=== PATIENT | male | born 1990 | race Caucasian/White ===

== ENCOUNTER 2016-09-12 15:46 | Emergency (ER) | payer OTHER ==
[2016-09-12 16:26] VITALS: BP 117/58; PULSE 75; TEMP 98.2; BMI 23.3
--- NOTE | 2016-09-12 17:18 | PDOC ---
History of Present Illness - General Chief Complaint: Chest Pain Stated Complaint: CHEST PAIN, SOB Time Seen by Provider: 09/12/16 17:06 History Source: Patient Exam Limitations: No Limitations - History of Present Illness Initial Comments: 09/12/16 17:33 My Chief Complaint: Dry cough, with shortness of breath and left chest pain and with breathing History of present illness: Patient is a 26-year-old male with no significant medical history here today complaining of a dry cough since with shortness of breath intermittent even at rest with left chest wall pain when deep breathing. Patient also reports having nasal congestion with clear rhinorrhea. Patient had nausea with vomiting since until yesterday. Patient went back to work today however is not feeling well. Today is the first day that he can drink as usual however still has a decreased appetite. Patient denies any fever. Patient did not have influenza vaccine. Denies any recent travel or any known sick contacts. Timing/Duration: getting worse Severity: moderate Associated Symptoms: reports: chest pain (left sided chest wall pain with cough , palpation or deep breathing ), cough, loss of appetite, nausea/vomiting (on until yesterday ), other (nasal congestion) Past History - Past Medical History Allergies/Adverse Reactions: Allergies Allergy/AdvReac Type Severity Reaction Status Date / Time No Known Allergies Allergy Verified 09/12/16 16:21 Home Medications: Ambulatory Orders Guaifenesin Dm [Mucinex Dm -] 1 tab PO Q12H PRN #10 tab.er.12h MDD 2 09/12/16 Ibuprofen [Motrin -] 400 mg PO Q4H PRN #18 tablet 09/12/16 - Psycho/Social/Smoking Cessation Hx Suicidal Ideation: No Smoking History: Never smoked Have you smoked in the past 12 months: No Information on smoking cessation initiated: No Hx Alcohol Use: Yes Drug/Substance Use Hx: No Substance Use Type: Marijuana Review of Systems - Review of Systems Able to Perform ROS?: Yes Constitutional: Yes: Loss of Appetite HEENTM: Yes: Nose Congestion Respiratory: Yes: Cough Cardiac (ROS): Yes: Chest Pain (left sided with deep breathing, cough, movement and palpation of chest wall). No: Irregular Heart Rate, Lightheadedness, Palpitations, Syncope, Chest Tightness ABD/GI: Yes: Vomiting (from 09/03/16 until yesterday) Musculoskeletal: No: Symptoms Reported Integumentary: No: Symptoms Reported Neurological: No: Symptoms reported *Physical Exam - Vital Signs Last Vital Signs Temp Pulse Resp BP Pulse Ox 98.2 F 75 18 117/58 100 09/12/16 16:21 09/12/16 16:21 09/12/16 16:21 09/12/16 16:21 09/12/16 16:21 - Physical Exam General Appearance: Yes: Appropriately Dressed HEENT: positive: Normal ENT Inspection Neck: negative: Lymphadenopathy (R), Lymphadenopathy (L) Respiratory/Chest: positive: Chest Tender (along left sternal border), Lungs Clear, Normal Breath Sounds. negative: Respiratory Distress, Accessory Muscle Use, Labored Respiration, Rapid RR, Decreased Breath Sounds, Paradoxal Breathing , Crackles, Rales, Rhonchi, Stridor, Wheezing Cardiovascular: positive: Regular Rhythm, Regular Rate, S1, S2 Extremity: positive: Normal Capillary Refill Integumentary: positive: Normal Color Neurologic: positive: Fully Oriented, Alert, Normal Response, Responsive Heart Score/ECG Review - ECG Impressions Comment:: 09/12/16 19:[address] Melgar Medical Decision Making - Medical Decision Making 09/12/16 17:35 Patient is a 26-year-old male with no significant medical history here today complaining of a dry cough since with shortness of breath intermittent even at rest with left chest wall pain when deep breathing. Patient also reports having nasal congestion with clear rhinorrhea. Patient had nausea with vomiting since [place] until yesterday. Patient went back to work today however is not feeling well. Today is the first day that he can drink as usual however still has a decreased appetite. Patient denies any fever. Patient did not have influenza vaccine. Denies any recent travel or any known sick contacts. He reports having intermittent fever. Rule out infiltrate cough with chest wall discomfort with deep breathing and shortness of breath costochondritis left sided Plan: DuoNeb X-ray chest PA and lateral no infiltrate noted EKG reviewed by Dr. Melgar wnl's acetaminophen 1000 mg po now Mucinex DM 1 tab q12hr prn cough X 5 days 09/12/16 19:04 09/12/16 19:07 09/12/16 19:33 Ibuprofen 400 mg every 6 hrs prn pain *DC/Admit/Observation/Transfer Diagnosis at time of Disposition: Costochondral chest pain, Cough - Discharge Dispostion Disposition: HOME Condition at time of disposition: Stable - Prescriptions Prescriptions: Ibuprofen [Motrin -] 400 mg PO Q4H PRN #18 tablet PRN Reason: Pain Guaifenesin Dm [Mucinex Dm -] 1 tab PO Q12H PRN #10 tab.er.12h MDD 2 PRN Reason: Cough - Referrals Referrals: Jessica Tucker MD [Primary Care Provider] - - Patient Instructions Additional Instructions: Rest and drink a lot of fluids and foods as tolerated Follow-up with your primary care provider within the next few days Return to emergency room if symptoms worsen or new symptoms develop Patient voiced understanding of discharge instructions and all questions were answered - Post Discharge Activity Work/School Note: Back to Work
[2016-09-12] MEDS ORDERED: ALBUTEROL SO4 2.5/IPRATROPIUM 0.5 INH SOL 3 ML VIAL.NEB. NEB ONE ×2 (17:32→17:34)
[2016-09-12] MEDS ORDERED: ACETAMINOPHEN 500 MG TABLET (FP) PO ONE (18:57)
[2016-09-12] MEDS ORDERED: ACETAMINOPHEN 500 MG TABLET (FP) ONE ×2 (18:58→18:59)
--- NOTE | 2016-09-14 15:17 | EKG ---
Test Reason : Blood Pressure : / mmHG Vent. Rate : 075 BPM Atrial Rate : 075 BPM P-R Int : 158 ms QRS Dur : 076 ms QT Int : 374 ms P-R-T Axes : 061 033 027 degrees QTc Int : 417 ms NORMAL SINUS RHYTHM NORMAL ECG NO PREVIOUS ECGS AVAILABLE Confirmed by MONIK ELIAS MD ([id number]) on 09/14/2016 3:17:14 PM Referred By: Confirmed By:MONIK ELIAS MD
== END 2016-09-12 20:24 | disposition home or self-care (01) ==
LOC: JERFT 15:46
PROC: 3E0F7GC Introduction of Other Therapeutic Substance into Respiratory Tract, Via Natural or Artificial Opening (ICD-10-PCS; principal; 2016-09-12)
DX: M94.0 Chondrocostal junction syndrome [Tietze] (principal); R05 Cough
CPT/HCPCS: 71020-TC; 93005; 93010; 99281-25

== ENCOUNTER 2019-09-30 17:09 | Emergency (ER) | payer OTHER ==
[2019-09-30 17:20] VITALS: BMI 25.0
--- NOTE | 2019-09-30 17:21 | PDOC ---
Rapid Medical Evaluation Time Seen by Provider: 09/30/19 17:17 Medical Evaluation: Allergies Allergy/AdvReac Type Severity Reaction Status Date / Time No Known Allergies Allergy Verified 09/12/16 16:21 09/30/19 17:19 This patient had brief evaluation by me cc: nausea and vomiting HPI: Patient reports nausea and vomiting since this am States intermittent abdominal pain. Complaining of cramping in his hands PE: NAD even and unlabored generalized abdominal tenderness orders: iv fluids, saline loc , labs This patient will proceed to the emergency room for further evaluation,. Discharge Disposition - Diagnosis Nausea and vomiting - Referrals - Patient Instructions - Post Discharge Activity
[2019-09-30] MEDS ORDERED: ONDANSETRON *ODT* 4 MG TABLET SL ONE (17:22)
[2019-09-30] MEDS ORDERED: SODIUM CHLORIDE 1,000 ML IV SCH (17:30)
[2019-09-30] MEDS ORDERED: ONDANSETRON *ODT* 4 MG TABLET ONE (17:47)
[2019-09-30 17:52] LABS: BASO % 0.8 % (0-2.0); EOS % 0.3 % (0-4.5); HEMATOCRIT 45.8 % (35.4-49); HEMOGLOBIN 15.6 GM/dL (11.7-16.9); LYMPH % 14.7 % (8-40); MCH 28.9 pg (25.7-33.7); MEAN CELL VOLUME 85.1 fl (80-96); MEAN PLT VOLUME 7.5 fl (7.5-11.1); MONO % 16.1 % (3.8-10.2); NEUT % 68.1 % (42.8-82.8); PLATELET COUNT 267 K/MM3 (134-434); RBC 5.38 M/mm3 (4.00-5.60); RDW 12.9 % (11.9-15.9); WHITE BLOOD COUNT 7.6 K/mm3 (4.0-10.0)
[2019-09-30 18:25] LABS: ALBUMIN 4.9 g/dl (3.4-5.0); BILIRUBIN,TOTAL 0.5 mg/dL (0.2-1); BLOOD UREA NITROGEN 10.6 mg/dL (7-18); CALCIUM 10.3 mg/dL (8.5-10.1); CREATININE 1.3 mg/dL (0.55-1.3); POTASSIUM 3.8 mmol/L (3.5-5.1); TOT PROT 8.5 g/dl (6.4-8.2)
[2019-09-30] MEDS ORDERED: ACETAMINOPHEN 1000 MG/100 ML VIAL (NON FORMULARY) IVPB ONE (19:43)
[2019-09-30] MEDS ORDERED: SODIUM CHLORIDE 1,000 ML IV STA (19:43)
--- NOTE | 2019-09-30 19:43 | PDOC ---
History of Present Illness - General Chief Complaint: Nausea/Vomiting Stated Complaint: NAUSEA/ BODYACHES Time Seen by Provider: 09/30/19 17:17 History Source: Patient - History of Present Illness Initial Comments: 09/30/19 21:25 29 year old male c/o Nausea and vomiting and abdominal pain. patient reports drinking milk with cake. denies abdominal pain now. PMHX: none Past History - Past Medical History Allergies/Adverse Reactions: Allergies Allergy/AdvReac Type Severity Reaction Status Date / Time No Known Allergies Allergy Verified 09/30/19 17:19 Home Medications: Ambulatory Orders Guaifenesin Dm [Mucinex Dm -] 1 tab PO Q12H PRN #10 tab.er.12h MDD 2 09/12/16 Ibuprofen [Motrin -] 400 mg PO Q4H PRN #18 tablet 09/12/16 COPD: No - Psycho Social/Smoking Cessation Hx Smoking History: Never smoked Have you smoked in the past 12 months: No Hx Alcohol Use: Yes Drug/Substance Use Hx: No Substance Use Type: Marijuana Review of Systems - Review of Systems Able to Perform ROS?: Yes Is the patient limited Tuvaluan proficient: No Constitutional: No: Symptoms Reported, See HPI, Chills, Diaphoresis, Fever, Loss of Appetite, Malaise, Night Sweats, Weakness, Weight Stable, Unintentional Wgt. Loss, Unexplained wgt Loss, Other ABD/GI: Yes: Nausea, Vomiting, Abdominal cramping *Physical Exam - Vital Signs Last Vital Signs Temp Pulse Resp BP Pulse Ox 101 F H 114 H 18 133/67 98 09/30/19 17:16 09/30/19 17:16 09/30/19 17:16 09/30/19 17:16 09/30/19 17:16 - Physical Exam General Appearance: Yes: Appropriately Dressed Respiratory/Chest: positive: Lungs Clear, Normal Breath Sounds Cardiovascular: positive: Regular Rhythm, Regular Rate Gastrointestinal/Abdominal: positive: Normal Bowel Sounds, Soft. negative: Tender Extremity: positive: Normal Capillary Refill, Normal Inspection, Normal Range of Motion Integumentary: positive: Normal Color, Dry, Warm Neurologic: positive: Fully Oriented, Alert, Normal Mood/Affect ED Treatment Course - LABORATORY CBC & Chemistry Diagram: 09/30/19 17:20 09/30/19 17:20 - ADDITIONAL ORDERS Additional order review: Laboratory Results 09/30/19 17:20 Sodium 136 Potassium 3.8 Chloride 101 Carbon Dioxide 24 Anion Gap 10 BUN 10.6 Creatinine 1.3 Est GFR (CKD-EPI)AfAm 85.46 Est GFR (CKD-EPI)NonAf 73.73 Random Glucose 96 Calcium 10.3 H Total Bilirubin 0.5 AST 13 L ALT 24 Alkaline Phosphatase 89 Total Protein 8.5 H Albumin 4.9 09/30/19 17:20 RBC 5.38 MCV 85.1 MCHC 34.0 RDW 12.9 MPV 7.5 Neutrophils % 68.1 Lymphocytes % 14.7 Monocytes % 16.1 H Eosinophils % 0.3 Basophils % 0.8 - Medications Given in the ED: ED Medications Discontinued Medications Generic Name Dose Route Start Last Admin Trade Name Tommyq PRN Reason Stop Dose Admin Ondansetron HCl 4 mg 09/30/19 17:22 09/30/19 17:51 Zofran Odt - SL 09/30/19 17:23 4 mg ONCE ONE Administration ED Progress Note - Progress Note Progress Note: 09/30/19 22:02 A: Nausea and vomting P: IVF cbc cmp UA Discharge - Discharge Information Problems reviewed: Yes Clinical Impression/Diagnosis: Gastroenteritis Nausea and vomiting Qualifiers: Vomiting type: unspecified Vomiting Intractability: unspecified Qualified Code( s): R11.2 - Nausea with vomiting, unspecified Condition: Improved Disposition: HOME - Follow up/Referral Referrals: Jessica Tucker MD [Primary Care Provider] - - Patient Discharge Instructions Patient Printed Discharge Instructions: DI for Vomiting -- Adult Additional Instructions: Drink plenty of fluids start a BRAT ( bananas, rice apples toast) follow up with your doctor return to the ER if symptoms worsen - Post Discharge Activity Work/Back to School Note: Back to Work
--- NOTE | 2019-09-30 19:45 | PDOC ---
*Physical Exam - Vital Signs Last Vital Signs Temp Pulse Resp BP Pulse Ox 101 F H 114 H 18 133/67 98 09/30/19 17:16 09/30/19 17:16 09/30/19 17:16 09/30/19 17:16 09/30/19 17:16 ED Treatment Course - LABORATORY CBC & Chemistry Diagram: 09/30/19 17:20 09/30/19 17:20 - ADDITIONAL ORDERS Additional order review: Laboratory Results 09/30/19 17:20 Sodium 136 Potassium 3.8 Chloride 101 Carbon Dioxide 24 Anion Gap 10 BUN 10.6 Creatinine 1.3 Est GFR (CKD-EPI)AfAm 85.46 Est GFR (CKD-EPI)NonAf 73.73 Random Glucose 96 Calcium 10.3 H Total Bilirubin 0.5 AST 13 L ALT 24 Alkaline Phosphatase 89 Total Protein 8.5 H Albumin 4.9 09/30/19 17:20 RBC 5.38 MCV 85.1 MCHC 34.0 RDW 12.9 MPV 7.5 Neutrophils % 68.1 Lymphocytes % 14.7 Monocytes % 16.1 H Eosinophils % 0.3 Basophils % 0.8 - Medications Given in the ED: ED Medications Discontinued Medications Generic Name Dose Route Start Last Admin Trade Name Freq PRN Reason Stop Dose Admin Ondansetron HCl 4 mg 09/30/19 17:22 09/30/19 17:51 Zofran Odt - SL 09/30/19 17:23 4 mg ONCE ONE Administration Medical Decision Making - Medical Decision Making 09/30/19 19:45 Patient seen by the advanced practice provider under my direct supervision. Ancillary testing reviewed as necessary. I agree with plan as outlined by the advanced practice provider. Discharge - Discharge Information Problems reviewed: Yes Clinical Impression/Diagnosis: Gastroenteritis Nausea and vomiting Qualifiers: Vomiting type: unspecified Vomiting Intractability: unspecified Qualified Code( s): R11.2 - Nausea with vomiting, unspecified Condition: Improved Disposition: HOME - Follow up/Referral Referrals: Jessica Tucker MD [Primary Care Provider] - - Patient Discharge Instructions Patient Printed Discharge Instructions: DI for Vomiting -- Adult Additional Instructions: Drink plenty of fluids start a BRAT ( bananas, rice apples toast) follow up with your doctor return to the ER if symptoms worsen - Post Discharge Activity Work/Back to School Note: Back to Work
[2019-09-30 21:24] VITALS: BP 118/78; PULSE 93; TEMP 99.9
[2019-09-30 22:16] LABS: URINE APPEARANCE CLEAR; URINE BILIRUBIN NEGATIVE (NEGATIVE); URINE COLOR YELLOW; URINE GLUCOSE (UA) NEGATIVE (NEGATIVE); URINE KETONE 1+ (NEGATIVE); URINE LEUK ESTERASE NEGATIVE (NEGATIVE); URINE NITRITE NEGATIVE (NEGATIVE); URINE PROTEIN NEGATIVE (NEGATIVE); URINE UROBILINOGEN 0.2 mg/dL (0.2-1.0)
== END 2019-09-30 22:13 | disposition home or self-care (01) ==
LOC: JER 17:09
PROC: 3E033NZ Introduction of Analgesics, Hypnotics, Sedatives into Peripheral Vein, Percutaneous Approach (ICD-10-PCS; principal; 2019-09-30)
DX: K52.9 Noninfective gastroenteritis and colitis, unspecified (principal)
CPT/HCPCS: 36415; 80053; 81003; 85025; 99283-25; J0131; J7030; Q0162